=== PATIENT | female | born 2000 | race Caucasian/White ===

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

== ENCOUNTER 2020-12-27 07:42 | Emergency (ER) | payer MEDICAID ==
[~2020-12-27] VITALS: Ht 157.5 cm; Wt 67.0 kg
[~2020-12-27 07:42] MED LIST changes: +ONDA4TAB12 PO
--- NOTE | 2020-12-27 07:58 | PHYS DOC ---
Past History Past Medical History: Asthma Past Surgical History: Tonsillectomy, Other Additional Past Surgical Histo: debriedment on feet Smoking: Cigarettes Alcohol Use: Heavy Drug Use: None General Adult EDM: Chief Complaint: GI PROBLEM HPI: HPI: 20-year-old female past medical history of asthma and right toe frostbite s/p debridement (snowboarding) presents to the ED with complaints of right upper abdominal pain for the past 3 days, some relief with ibuprofen. Reports pain started over her right flank and is now radiating to her right mid- axillary and ruq region. No known h/o kidney stones. States she has a 13 month old son but lost her 40wk baby in delivery 1 month ago at [facility] (nuchal cord). Reports mild vaginal bleeding. Denies any abnormal vaginal discharge itching or odor. LBM yesterday-normal consistency, brown color. Review of Systems: Review of Systems: Constitutional: Denies fever or chills Eyes: Denies change in visual acuity HENT: Denies nasal congestion or sore throat Respiratory: Denies cough or shortness of breath Cardiovascular: Denies chest pain or edema GI: Denies nausea, vomiting, bloody stools or diarrhea : Denies dysuria or hematuria Musculoskeletal: Denies back pain or joint pain Integument: Denies rash or crepitus Neurologic: Denies headache, focal weakness or sensory changes Endocrine: Denies polyuria or polydipsia Lymphatic: Denies swollen glands Psychiatric: Denies depression or anxiety Allergies: Allergies: Allergies Coded Allergies Type Severity Reaction Last Updated Verified No Known Drug Allergies 12/27/20 No Physical Exam: PE: Constitutional: Well developed, well nourished, no acute distress, non-toxic appearance. HENT: Normocephalic, atraumatic, Eyes: EOMI, conjunctiva normal, no discharge. Neck: Normal range of motion, supple, Cardiovascular: S1/2 present, regular rhythm Lungs & Thorax: Speaking in full sentences, bilateral equal chest rise, no tachypnea or increased work of breathing Abdomen: soft, no reproducible tenderness, no Vnan sign, no peritonitis or guarding, no pain over right lower and mid axillary ribs-abdominal and back exam benign, Skin: Warm, dry, no erythema, no rash. [] Back: No midline tenderness, no CVA tenderness. [] Extremities: No tenderness, no cyanosis, no lower extremity edema Neurologic: Alert and oriented X 3, normal motor function, normal sensory function, no focal deficits noted. [] Psychologic: Affect normal, judgement normal, mood normal. [] EKG: EKG: Sinus rhythm at 97 bpm, no axis deviation, normal intervals, S1Q3T3 present, T wave inversion in lead III, no ST elevations or ST depressions Radiology/Procedures: Radiology/Procedures: [IMAGING REPORT Signed PATIENT: ANA MARIA LEAHY AACCOUNT: [id number] : 2000 LOCATION: ER AGE: 20 SEX: F EXAM STATUS: REG ER ORD. PHYSICIAN: FREDERICK DRIVER DO REASON: right flank pain PROCEDURE: CT ABDOMEN PELVIS WO CONTRAST Study: CT abdomen/pelvis without intravenous contrast Indication: Right flank pain. Comparison: None. Technique: Helical CT imaging performed of the abdomen and pelvis without the use of intravenous contrast. Sagittal and coronal reformats were obtained. One or more of the following individualized dose reduction techniques were utilized for this examination: 1. Automated exposure control 2. Adjustment of the mA and/or kV according to patient size 3. Use of iterative reconstruction technique. Findings: Inherently limited evaluation without intravenous contrast. No abnormality at the visualized lungs. Unremarkable liver noting that the upper margin is excluded from the [id number]. Partially decompressed gallbladder. Nondilated biliary tree. Within normal limits pancreas, spleen and adrenal glands. No nephrolithiasis or collecting system dilatation on the right or left. Unremarkable urinary bladder. Within normal limits uterus and adnexa for patient age. Mild volume colonic stool burden. No localized wall thickening. The appendix is normal as seen on image 81 series 2 unremarkable stomach. Nondilated small bow el. Normal aortic caliber. No appreciable lymphadenopathy by size criteria. Possible trace free fluid within the deep pelvis. Mild haziness of the lower omentum and portions of the inferior mesentery but favored volume averaging given close apposition of bowel. No pneumoperitoneum. Within normal limits body wall soft tissues. No acute or aggressive osseous process. Chronic bilateral pars defects at L5 with associated grade 1 anterolisthesis of L5 on S1 and mild disc space narrowing at this level. Mild osseous neural foraminal encroachment on the right. 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 Impression: 1. No nephrolithiasis or collecting system dilatation to explain the patient's flank pain. Collectively no acute abnormality is seen throughout the abdomen/pelvis. 2. Incidental chronic bilateral pars defects at L5 with grade 1 anterolisthesis of L5 on S1. Electronically signed by: MAYURI CHAVIRA MD (12/27/2020 10:15 AM) [id number] DICTATED AND SIGNED BY: MAYURI CHAVIRA MD DATE: 12/27/20 1006 CC: PCPTADEO; FREDERICK DRIVER DO ~MTH0 0 IMAGING REPORT Signed PATIENT: ANA MARIA LEAHY AACCOUNT: [id number] : 2000 LOCATION: ER AGE: 20 SEX: F EXAM STATUS: REG ER ORD. PHYSICIAN: FREDERICK DRIVER DO REASON: ruq pain to shoulder PROCEDURE: PORTABLE CHEST 1V XR CHEST 1V 12/27/2020 8:07 AM INDICATION: Right upper quadrant pain to the shoulder COMPARISON: 05/26/2017 TECHNIQUE: Portable frontal view of the chest is provided. FINDINGS: The cardiomediastinal silhouette is within normal limits. Lungs are clear. There are no significant pleural effusions. There is no pulmonary vascular congestion. No pneumothorax. No suspicious osseous abnormality. IMPRESSION: There is no acute cardiopulmonary process. Electronically signed by: Cheri Deleon MD (12/27/2020 8:11 AM) [id number] DICTATED AND SIGNED BY: CHERI DELEON MD DATE: 12/27/20 0811 CC: PCPTADEO; FREDERICK DRIVER DO ~MTH0 0 Heart Score: Risk Factors: Risk Factors: DM, Current or recent (<one month) smoker, HTN, HLP, family history of CAD, obesity. Risk Scores: Score 0 - 3: 2.5% MACE over next 6 weeks - Discharge Home Score 4 - 6: 20.3% MACE over next 6 weeks - Admit for Clinical Observation Score 7 - 10: 72.7% MACE over next 6 weeks - Early Invasive Strategies Course & Med Decision Making: Course & Med Decision Making Pertinent Labs and Imaging studies reviewed. (See chart for details) Concern for right flank/ruq abdominal pain - very benign exam. Pt sitting comfortably. CT abdomen pelvis without contrast with no renal stone, normal appendix, partially decompressed gallbladder and unremarkable liver although upper margin of liver not visualized. Urinalysis concerning for urinary tract infection - hematuria likely related to VB (hcg quant negative, hemorrhagic cystitis on ddx). Will discharge home with abx for uti and strict ED return precautions were given for worsening fever, body aches, dehydration with persistent nausea and vomiting (pyelonephritis/sepsis symptoms). Encouraged urgent outpatient follow-up with PMD. Life-threatening processes were considered but are low suspicion at this time, given history, physical exam and ED workup. Pt was educated on all prescription medications and adverse effects. All patient's questions were answered and pt was stable at time of discharge. Life/limb-threatening differential includes but is not limited to, aortic dissection, aortic aneurysm, acute coronary syndrome, surgical abdomen (appendicitis, cholecystitis, ischemic bowel, strangulated hernia, etc), bowel obstruction or volvulus, bladder outlet obstruction, gastrointestinal bleeding, inflammatory bowel disease, peptic ulcer disease, ACS/CAD, sepsis, diverticular disease, ureterolithiasis, nephrolithiasis, ovarian torsion, ectopic , vaginal hemorrhage, or genitourinary infection. I spoken with the patient and her caregivers. I explained the patient's condition, diagnoses and treatment plan based on the information available to me at this time. I have answered the patient and her caregiver's questions and addressed any concerns. The patient and her caregivers have a good understanding of patient's diagnosis, condition and treatment plan as can be expected at this point. Vital signs have been stable. Patient's condition is stable and appropriate for discharge from the emergency department. Patient will pursue further outpatient evaluation with primary care physician or other designated or consulting physician as outlined in the discharge instructions. The patient and/or caregivers are agreeable to this plan of care and follow-up instructions have been explained in detail. The patient and/or caregivers have received these instructions in written form and have expressed an understanding of the discharge instructions. The patient and/or caregivers are aware that any significant change of condition or worsening of symptoms should prompt immediate return to this or the closest emergency department or call to 911. Skip Disclaimer: Skip Disclaimer: This electronic medical record was generated, in whole or in part, using a voice recognition dictation system. Departure Departure: Impression: Primary Impression: Abdominal pain Additional Impression: UTI (urinary tract infection) Disposition: 01 DC HOME SELF CARE/HOMELESS Condition: STABLE Referrals: ARIANNA RAMIREZ MD (PCP) in 10 days for repeat u/a Patient Instructions: Urinary Tract Infection Additional Instructions: EMERGENCY DEPARTMENT GENERAL DISCHARGE INSTRUCTIONS Thank you for coming to [facility] (ED) today and trusting us with you care. We trust that you had a positivie experience in our Emergency Department. If you wish to speak to the department management, you may call the director at [phone]. YOUR FOLLOW UP INSTRUCTIONS ARE FOLLOWS: 1. Do you have a private Doctor? If you do not have a private doctor, please ask for a resource list of physicians or clinics that may be able to assist you with follow up care. 2. The Emergency Physician has interpreted your x-rays. The X-Ray specialist will also review them. If there is a change in the findings, you will be notified in 48 hours when at all possible. 3. A lab test or culture has been done, your results will be reviewed and you will be notified if you need a change in treatment. ADDITIONAL INSTRUCTIONS AND INFORMATION: 1. Your care today has been supervised by a physician who is specially trained in emergency care. Many problems require more than one evaluation for a complete diagnosis and treatment. We recommend that you schedule your follow up appointment as recommended to ensure complete treatment of you illness or injury. If you are unable to obtain follow up care and continue to have a problem, or if your condition worsens, we recommend that you return to the ED. 2. We are not able to safely determine your condition over the phone nor are we able to give sound medical advice over the phone. For these safety reasons, if you call for medical advice we will ask you to come to the ED for further evaluation. 3. If you have any questions regarding these discharge instructions please call the ED at [phone]. SAFETY INFORMATION: In the interest of safety, wellness, and injury prevention; we encourage you to wear your sealbelt, if you smoke; quite smoking, and we encourage family to use a protective helmet for bicycling and other sporting events that present an increased risk for head injury. IF YOUR SYMPTOMS WORSEN OR NEW SYMPTOMS DEVELOP, OR YOU HAVE CONCERNS ABOUT YOUR CONDITION; OR IF YOUR CONDITION WORSENS WHILE YOU ARE WAITING FOR YOUR FOLLOW UP APPOINTMENT; EITHER CONTACT YOUR PRIMARY CARE DOCTOR, THE PHYSICIAN WHOSE NAME AND NUMBER YOU WERE GIVEN, OR RETURN TO THE ED IMMEDIATELY. Scripts Phenazopyridine Hcl (PHENAZOPYRIDINE HCL) 200 Mg Tablet 1 TAB PO TID for urinary discomfort for 3 Days, #9 TAB 0 Refills after food Prov: FREDERICK DRIVER DO 12/27/20 Nitrofurantoin Monohyd/M-Cryst (MACROBID 100 MG CAPSULE) 100 Mg Capsule 1 CAP PO BID for uti for 7 Days, #14 CAP 0 Refills Prov: FREDERICK DRIVER DO 12/27/20 FREDERICK DRIVER DO Dec 27, 2020 07:58
[2020-12-27 08:27] LABS: BASO % 0 % (0-3); EOS # 0.3 x10^3/uL (0.0-0.7); EOS % 3 % (0-3); HEMATOCRIT 38.9 % (36.0-47.0); HEMOGLOBIN 12.5 g/dL (12.0-15.5); LYMPH # 2.3 x10^3/uL (1.0-4.8); LYMPH % 22 % (24-48); MEAN CORPUSCULAR HEMOGLOBIN 28 pg (25-35); MEAN CORPUSCULAR HGB CONC 32 g/dL (31-37); MEAN CORPUSCULAR VOLUME 88 fL (79-100); MONO # 0.9 x10^3/uL (0.0-1.1); MONO % 9 % (0-9); NEUT # 6.8 x10^3uL (1.8-7.7); NEUT % 66 % (31-73); PLATELET COUNT 193 x10^3/uL (140-400); RED BLOOD COUNT 4.44 x10^6/uL (3.50-5.40); RED CELL DISTRIBUTION WIDTH 14.7 % (11.5-14.5); WHITE BLOOD COUNT 10.3 x10^3/uL (4.0-11.0)
[2020-12-27] MEDS ORDERED: KETOROLAC 15 MG/ML VIAL. IVP ONE (08:30)
--- NOTE | 2020-12-27 08:32 | RAD ---
XR CHEST 1V 12/27/2020 8:07 AM INDICATION: Right upper quadrant pain to the shoulder COMPARISON: 05/26/2017 TECHNIQUE: Portable frontal view of the chest is provided. FINDINGS: The cardiomediastinal silhouette is within normal limits. Lungs are clear. There are no significant pleural effusions. There is no pulmonary vascular congestion. No pneumothora x. No suspicious osseous abnormality. IMPRESSION: There is no acute cardiopulmonary process. Electronically signed by: Saida Malave MD (12/27/2020 8:11 AM) [id number]
[2020-12-27 08:34] LABS: BARBITURATES NEG (NEG); BENZODIAZEPINES NEG (NEG); CANNABINOIDS POS (NEG); COCAINE NEG (NEG); METHADONE NEG (NEG); OPIATES NEG (NEG); PHENCYCLIDINE NEG (NEG)
[2020-12-27 08:36] LABS: AMPHETAMINE/METHAMPHETAMINE NEG (NEG)
[2020-12-27 08:39] LABS: BILIRUBIN,URINE NEG (NEG); CLARITY,URINE CLOUDY; COLOR,URINE YELLOW; GLUCOSE,URINE NEG (NEG)
[2020-12-27 08:39] LABS: CALCIUM 8.6 mg/dL (8.5-10.1); CREATININE 0.6 mg/dL (0.6-1.0); GFR 127.5; POTASSIUM 4.3 mmol/L (3.5-5.1)
[2020-12-27 08:40] LABS: AMORPHOUS SEDIMENT,UR PRESENT /HPF; BACTERIA,URINE MOD /HPF (0-FEW); NITRITE,URINE NEG (NEG); RBC,URINE 20-40 /HPF (0-2); SQUAMOUS EPITHELIAL CELL,UR MANY /LPF; WBC,URINE 20-40 /HPF (0-4)
[2020-12-27 08:46] LABS: ALBUMIN 3.1 g/dL (3.4-5.0); DIRECT BILIRUBIN 0.1 mg/dL (0.0-0.2); TOTAL BILIRUBIN 0.3 mg/dL (0.2-1.0); TOTAL PROTEIN 6.6 g/dL (6.4-8.2)
[2020-12-27] MEDS ORDERED: IV NORMAL SALINE 1,000ML 1,000 ML IV ONE (09:15)
[2020-12-27] MEDS ORDERED: cefTRIAXone SODIUM 1 GM VIAL ONE (09:19)
[2020-12-27] MEDS ORDERED: IV NORMAL SALINE 50ML 50 ML ONE (09:19)
[2020-12-27 09:21] VITALS: BP 100/57
--- NOTE | 2020-12-27 10:17 | RAD ---
Study: CT abdomen/pelvis without intravenous contrast Indication: Right flank pain. Comparison: None. Technique: Helical CT imaging performed of the abdomen and pelvis without the use of intravenous cont rast. Sagittal and coronal reformats were obtained. One or more of the following individualized dose reduction techniques were utilized for this examinat ion: 1. Automated exposure control 2. Adjustment of the mA and/or kV according to patient size 3. Use of iterative reconstruction technique. Findings: Inherently limited evaluation without intravenous contrast. No abnormality at the visualized lungs. Unremarkable liver noting that the upper margin is excluded from the [id number]. Partially decompr essed gallbladder. Nondilated biliary tree. Within normal limits pancreas, spleen and adrenal glands. No nephrolithiasis or collecting system dilatation on the right or left. Unremarkable urinary bladder . Within normal limits uterus and adnexa for patient age. Mild volume colonic stool burden. No localized wall thickening. The appendix is normal as seen on zayra ge 81 series 2 unremarkable stomach. Nondilated small bowel. Normal aortic caliber. No appreciable lymphadenopathy by size criteria. Possible trace free fluid wit hin the deep pelvis. Mild haziness of the lower omentum and portions of the inferior mesentery but fa vored volume averaging given close apposition of bowel. No pneumoperitoneum. Within normal limits bod y wall soft tissues. No acute or aggressive osseous process. Chronic bilateral pars defects at L5 with associated grade 1 anterolisthesis of L5 on S1 and mild disc space narrowing at this level. Mild osseous neural foramina l encroachment on the right. 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 Impression: 1. No nephrolithiasis or collecting system dilatation to explain the patient's flank pain. Collectiv tara no acute abnormality is seen throughout the abdomen/pelvis. 2. Incidental chronic bilateral pars defects at L5 with grade 1 anterolisthesis of L5 on S1. Electronically signed by: MAYURI CHAVIRA MD (12/27/2020 10:15 AM) [id number]
[2020-12-27] MEDS ORDERED: NITR100C62 PO (10:33)
[2020-12-27] MEDS ORDERED: PHEN-444 PO (10:33)
--- NOTE | 2020-12-27 12:07 | EKG ---
[address] [address] Test Date: 2020-12-27 Test Time: 08:05:57 Pat Name: ANA MARIA LEAHY Department: Room: Gender: F Ammunition Supervisor: ISABEL : 2000 Requested By: FREDERICK DRIVER Order Number: [id number] Reading MD: Measurements Intervals [place] Rate: 97 P: 59 IA: 134 QRS: 46 QRSD: 82 T: 16 QT: 324 QTc: 415 Interpretive Statements SINUS RHYTHM NORMAL ECG RI6.02 No previous ECG available for comparison
== END 2020-12-27 10:44 | disposition home or self-care (01) ==
LOC: ER 07:42
DX: N39.0 Urinary tract infection, site not specified (principal); R10.11 Right upper quadrant pain; J45.909 Unspecified asthma, uncomplicated; F17.210 Nicotine dependence, cigarettes, uncomplicated; F10.10 Alcohol abuse, uncomplicated; Z90.89 Acquired absence of other organs; Z98.890 Other specified postprocedural states
CPT/HCPCS: 36415; 71045; 74176; 80048; 80076; 80307; 81001; 82550; 83690; 84484; 84702; 85025; 87086; 93005; 96365; 96375; 99285; J0696; J1885; J7030

== ENCOUNTER 2021-06-19 21:33 | Emergency (ER) | payer MEDICAID ==
[~2021-06-19] VITALS: Ht 157.5 cm; Wt 61.4 kg
[~2021-06-19 21:33] MED LIST changes: +NITR100C62 PO; +PHEN-444 PO
--- NOTE | 2021-06-19 21:38 | PHYS DOC ---
Past History Past Medical History: Asthma Past Surgical History: Tonsillectomy, Other Additional Past Surgical Histo: debriedment on feet Smoking: Cigarettes Alcohol Use: Heavy Drug Use: None General Adult HPI: HPI: ".. I accidentally dropped a .. fucking big rock on my Lt. foot.. ".. " My mom had been all over me to clear up the fucking yard.. " Patient is a 21 year old female who presents with above hx of above and complaints of Lt foot pain after dropping rock on foot. Patient has an abrasion, contusion to the left foot. Patient does not remember her last tetanus. Patient denies any severe ill contacts. Distal neurovascular is equal to right foot. Pain with foot squeeze. Patient does have past medical history of asthma, self cutting, 2 para 10. No recent travel. No severe ill contacts. No history immunosuppression. Does not remember her last tetanus vaccination. Review of Systems: Review of Systems: Constitutional: Denies fever or chills Eyes: Denies change in visual acuity HENT: Denies nasal congestion or sore throat Respiratory: Denies cough or shortness of breath Cardiovascular: Denies chest pain or edema GI: Denies abdominal pain, nausea, vomiting, bloody stools or diarrhea : Denies dysuria Musculoskeletal: Complains of injury to left foot Integument: Denies rash Neurologic: Denies headache, focal weakness or sensory changes Endocrine: Denies polyuria or polydipsia Lymphatic: Denies swollen glands Psychiatric: Denies depression or anxiety Family History: Family History: Noncontributory to presentation Current Medications: Current Meds: See nursing for home meds Allergies: Allergies: Allergies Coded Allergies Type Severity Reaction Last Updated Verified No Known Drug Allergies 12/27/20 No Physical Exam: PE: Constitutional: Well developed, well nourished, in acute distress, non-toxic appearance. [] HENT: Normocephalic, atraumatic, bilateral external ears normal, oropharynx moist, no oral exudates, nose normal. [] Eyes: PERRLA, EOMI, conjunctiva normal, no discharge. [] Neck: Normal range of motion, no tenderness, supple, no stridor. [] Cardiovascular:Heart rate regular rhythm, no murmur [] Lungs & Thorax: Bilateral breath sounds equal apex with scattered wheezes on auscultation [] Abdomen: Bowel sounds normal, soft, no tenderness, no masses, no pulsatile masses. [] Skin: Warm, dry, no erythema, no rash. [] Abrasion left foot. Multiple old self cutting scars Back: No tenderness, no CVA tenderness. [] Extremities: No tenderness, no cyanosis, no clubbing, ROM intact, no edema. Set findings in left foot as per HPI Neurologic: Alert and oriented X 3, normal motor function, normal sensory function, no focal deficits noted. [] Psychologic: Affect anxious, judgement normal, mood normal. [] EKG: EKG: [] Radiology/Procedures: Radiology/Procedures: [][place] [address] IMAGING REPORT Signed PATIENT: ANA MARIA LEAHY AACCOUNT: [id number] : 2000 LOCATION: ER AGE: 21 SEX: F EXAM STATUS: REG ER ORD. PHYSICIAN: SOLEDAD MARTINEZ MD REASON: FOOT CONTUSION PROCEDURE: FOOT LEFT 3V Exam: Left foot 3 views INDICATION: Foot contusion TECHNIQUE: Frontal, lateral and oblique views of the right foot Comparisons: None FINDINGS: There is soft tissue edema and gas along the dorsal surface of the forefoot and midfoot. Bone mineralization is normal. No acute or healed fractures. Joint spaces are well-maintained. IMPRESSION: Soft tissue irregularity along the dorsal aspect of the forefoot and midfoot without underlying osseous abnormality identified. Electronically signed by: Rosario Longoria MD (06/19/2021 9:56 PM) [facility] DICTATED AND SIGNED BY: ROSARIO LONGORIA MD DATE: 06/19/212154 CC: SOLEDAD MARTINEZ MD; PCP,NO ~MTH0 0 See correct read- Navicular Fx. Heart Score: C/O Chest Pain: N/A Risk Factors: Risk Factors: DM, Current or recent (<one month) smoker, HTN, HLP, family history of CAD, obesity. Risk Scores: Score 0 - 3: 2.5% MACE over next 6 weeks - Discharge Home Score 4 - 6: 20.3% MACE over next 6 weeks - Admit for Clinical Observation Score 7 - 10: 72.7% MACE over next 6 weeks - Early Invasive Strategies Course & Med Decision Making: Course & Med Decision Making Pertinent Labs and Imaging studies reviewed. (See chart for details) Ice, elevation, rest, splint, and use crutches. Follow-up with [facility]. Take Tylenol and ibuprofen for pain. For marked pain may take Vicoprofen up to 4 times a day. Use Polysporin to wound 4 times a day. Return if any concerns. Impression: 1. Contusion and abrasion left foot 2. Left foot fracture-navicular [] Dragon Disclaimer: Dragmikey Disclaimer: This electronic medical record was generated, in whole or in part, using a voice recognition dictation system. Departure Departure: Referrals: PCP,NO (PCP) Scripts Hydrocodone/Ibuprofen (HYDROCODONE-IBUPROFEN 7.5-200 ) 1 Each Tablet 1 TAB PO PRN Q6HRS PRN for PAIN, #30 TAB 0 Refills Prov: SOLEDAD MARTINEZ MD 06/19/21 Skip Disclaimer This chart was dictated in whole or in part using Voice Recognition software in a busy, high-work load, and often noisy Emergency Department environment. It may contain unintended and wholly unrecognized errors or omissions. SOLEDAD MARTINEZ MD Jun 19, 2021 21:38
--- NOTE | 2021-06-19 21:59 | RAD ---
Exam: Left foot 3 views INDICATION: Foot contusion TECHNIQUE: Frontal, lateral and oblique views of the right foot Comparisons: None FINDINGS: There is soft tissue edema and gas along the dorsal surface of the forefoot and midfoot. Bone mineral ization is normal. No acute or healed fractures. Joint spaces are well-maintained. IMPRESSION: Soft tissue irregularity along the dorsal aspect of the forefoot and midfoot without underlying osseo us abnormality identified. Electronically signed by: Rosario Spann MD (06/19/2021 9:56 PM) GERMAINE
[2021-06-19] MEDS ORDERED: KETOROLAC 60 MG/2 ML VIAL. IM ONE (22:00)
[2021-06-19] MEDS ORDERED: HYDR-1179 PO (22:02)
[2021-06-19] MEDS ORDERED: MORPHINE SULFATE 10 MG/ML SYRINGE. SQ ONE (22:15)
[2021-06-19] MEDS ORDERED: DIPH,PERTUSS(ACELL),TET VAC/PF 0.5 ML SYRINGE. VAX IM ONE (22:45)
[2021-06-19] MEDS ORDERED: BACITRACIN ZINC TOPICAL OINT PACKET. TP ONE (23:30)
[2021-06-19 23:35] VITALS: BP 110/62
== END 2021-06-19 23:38 | disposition home or self-care (01) ==
LOC: ER 21:33
DX: S92.252A Displaced fracture of navicular [scaphoid] of left foot, initial encounter for closed fracture (principal); J45.909 Unspecified asthma, uncomplicated; F17.210 Nicotine dependence, cigarettes, uncomplicated; F10.20 Alcohol dependence, uncomplicated; Y90.0 Blood alcohol level of less than 20 mg/100 ml; W20.8XXA Other cause of strike by thrown, projected or falling object, initial encounter; Y93.89 Activity, other specified; Y92.89 Other specified places as the place of occurrence of the external cause; Y99.8 Other external cause status
CPT/HCPCS: 29515; 73630; 90471; 90715; 96372; 99284; J1885; J2270

== ENCOUNTER 2021-09-12 11:13 | Emergency (ER) | payer MEDICAID ==
[~2021-09-12 11:13] MED LIST changes: -EPIN0.1S IJ; +HYDR-1179 PO; +[UNRECOGNIZED DRUG - CODE] IJ
== END 2021-09-12 11:40 | disposition left against medical advice (07) ==
LOC: ER 11:13
DX: Z04.6 Encounter for general psychiatric examination, requested by authority (principal); Z53.21 Procedure and treatment not carried out due to patient leaving prior to being seen by health care provider